=== PATIENT | female | born 1985 | race Two or more races ===

== ENCOUNTER 2021-02-20 11:03 | Emergency (ER) | payer OTHER ==
[~2021-02-20] VITALS: Ht 149.9 cm; Wt 53.1 kg
[~2021-02-20 11:03] MED LIST: PRENA1 TRUE CO1 EACH PO
[2021-02-20] MEDS ORDERED: ZOFRAN8 MG (11:24)
== END 2021-02-20 16:28 | disposition home or self-care (01) ==
LOC: ER 11:03
DX: E86.0 Dehydration (principal); K52.89 Other specified noninfective gastroenteritis and colitis; R50.9 Fever, unspecified; Z11.52 Encounter for screening for COVID-19

== ENCOUNTER 2021-06-30 18:30 | Inpatient (IN) | payer OTHER ==
[~2021-06-30] VITALS: Ht 149.9 cm; Wt 60.3 kg
[~2021-06-30 18:30] MED LIST changes: +ZOFRAN8 MG
[2021-06-30] MEDS ORDERED: VALTREX PO (19:59)
[2021-07-02] MEDS ORDERED: VALACYCLOVIR500 MG (08:47)
== END 2021-07-03 14:57 | disposition home or self-care (01) | DRG 787 ==
LOC: OB/GYN 18:30 → LDR 18:30 → OB/GYN 07-01 04:45
PROVIDERS: ADMIT Obstetrics & Gynecology; ATTEND Obstetrics & Gynecology
PROC: 4A1HXCZ Monitoring of Products of Conception, Cardiac Rate, External Approach (ICD-10-PCS; 2021-06-30)
PROC: 10D00Z1 Extraction of Products of Conception, Low, Open Approach (ICD-10-PCS; principal; 2021-07-01 01:00)
DX: O36.5930 Maternal care for other known or suspected poor fetal growth, third trimester, not applicable or unspecified (principal); O41.03X0 Oligohydramnios, third trimester, not applicable or unspecified; O76 Abnormality in fetal heart rate and rhythm complicating labor and delivery; O99.820 Streptococcus B carrier state complicating pregnancy; Z20.822 Contact with and (suspected) exposure to COVID-19; Z37.0 Single live birth; Z3A.38 38 weeks gestation of pregnancy